=== PATIENT | male | born 1980 | race Caucasian/White ===

== ENCOUNTER 2016-07-27 21:54 | Emergency (ER) | payer MEDICAID ==
[2016-07-27 21:55] VITALS: BMI 34.8
[2016-07-27 22:32] VITALS: BP 147/88; PULSE 88; RESP 20; TEMP 100.1; O2SAT 99
[2016-07-27] MEDS ORDERED: Dexamethasone 4 mg/1 ml IM STA (22:49)
[2016-07-27] MEDS ORDERED: Dexamethasone 4 mg/1 ml ONE (22:52)
--- NOTE | 2016-07-27 23:01 | C.PDOC ---
History Of Present Illness Patient is a 35 year old male who presents to the ER with a complaint of a sore throat and fever or the past 2 days. Patient states he was seen at the [facility] where he tested positive for strep. Patient was given motrin and amoxicillin Rx, however sore throat persists. Patient denies nausea, vomiting or sick contact. Time Seen by Provider: 07/27/16 22:36 Chief Complaint (Nursing): Cough, Cold, Congestion History Per: Patient History/Exam Limitations: no limitations Onset/Duration Of Symptoms: Days (2) Current Symptoms Are (Timing): Still Present Location Of Pain: Throat Sick Contacts (Context): None Associated Symptoms: Fever, Sore Throat. denies: Nausea, Vomiting Ear Symptoms: Bilateral: None Recent travel outside of the [place]: No Past Medical History Reviewed: Historical Data, Nursing Documentation, Vital Signs Vital Signs: Last Vital Signs Temp 100.1 F H 07/27/16 22:28 Pulse 88 07/27/16 22:28 Resp 20 07/27/16 23:07 BP 147/88 07/27/16 22:28 Pulse Ox 99 07/27/16 23:57 - Medical History PMH: HTN Surgical History: No Surg Hx Family History: States: Unknown Family Hx - Social History Hx Alcohol Use: No Hx Substance Use: No - Immunization History Hx Tetanus Toxoid Vaccination: No Hx Influenza Vaccination: No Hx Pneumococcal Vaccination: No Review Of Systems Constitutional: Positive for: Fever ENT: Positive for: Throat Pain Gastrointestinal: Negative for: Nausea, Vomiting Physical Exam - Physical Exam Appears: Non-toxic, No Acute Distress Skin: Normal Color, Warm, Dry Head: Atraumatic, Normacephalic Oral Mucosa: Moist Throat: Erythema, Exudate Neck: Normal, Supple Lymphatic: Adenopathy Chest: Symmetrical, No Tenderness Cardiovascular: Rhythm Regular, No Murmur Respiratory: Normal Breath Sounds, No Rales, No Rhonchi, No Wheezing Gastrointestinal/Abdominal: Soft, No Tenderness Neurological/Psych: Oriented x3, Normal Speech, Normal Cognition ED Course And Treatment O2 Sat by Pulse Oximetry: 99 (Room air) Pulse Ox Interpretation: Normal Progress Note: Decadron and toradol administered. Disposition - Disposition Referrals: [facility] [Outside] Disposition: HOME/ ROUTINE Disposition Time: 22:59 Condition: GOOD Additional Instructions: Follow up with the medical doctor within 1-2 days. Return if worsened. Prescriptions: predniSONE [Prednisone] 10 mg PO BID #10 tab Instructions: Pharyngitis (ED) - Clinical Impression Clinical Impression: Pharyngitis - Scribe Statement The provider has reviewed the documentation as recorded by the Scribsteve Sullivan All medical record entries made by the Mindyibsteve were at my direction and personally dictated by me. I have reviewed the chart and agree that the record accurately reflects my personal performance of the history, physical exam, medical decision making, and the department course for this patient. I have also personally directed, reviewed, and agree with the discharge instructions and disposition.
== END 2016-07-27 23:07 | disposition home or self-care (01) ==
LOC: C.ER 21:54
DX: J02.9 Acute pharyngitis, unspecified (principal); I10 Essential (primary) hypertension
CPT/HCPCS: 96372; 99283; J1100; J1885